=== PATIENT | male | born 1960 | race Caucasian/White ===

== ENCOUNTER 2018-01-27 22:55 | Emergency (ER) | payer MEDICAID, OTHER ==
[~2018-01-27] VITALS: Ht 188 cm; Wt 89.4 kg
[~2018-01-27 22:55] MED LIST: IBUP-1953 PO; LISI2.5T2 PO
--- NOTE | 2018-01-27 23:06 | NUR ---
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 PT WITH HX OF VERTIGO, LAST EPISODE 1 YR AGO, DOES NOT TAKE ANY CURERNT MEDICATION FOR VERTIGO. PT AOX3 RR EVEN AND UNLAORED. NO SOB NOTED. NAD NOTED. NO NVD AT THIS TIME. PT GOWNED AND PLACED ON MONITOR WAITING FOR MD MARTINEZ.
--- NOTE | 2018-01-27 23:22 | NUR ---
FAMILY AT BEDSIDE. IV STARTED ON RIGHT AC, GOOD BLOOD RETURN, LABS DRAWN SENT TO LAB.
--- NOTE | 2018-01-27 23:27 | NUR ---
DR. MCCLELLAN AT BEDSIDE FOR EVAL
[2018-01-27] MEDS ORDERED: MECLIZINE HCL 25 MG TABLET ONE (23:28)
[2018-01-27 23:30] LABS: BASOPHILS # (AUTO) 0.1 /CMM (0.0-0.2); BASOPHILS % (AUTO) 0.5 % (0.0-2.0); EOSINOPHILS % (AUTO) 0.7 % (0.0-6.0); HEMATOCRIT 45 % (39-51); HEMOGLOBIN 15.7 g/dL (13.5-17.5); LYMPHOCYTES # (AUTO) 3.1 /CMM (0.8-4.8); LYMPHOCYTES % (AUTO) 27.4 % (20.0-44.0); MEAN CORPUSCULAR HGB CONC 35 g/dl (31.0-36.0); MEAN CORPUSCULAR VOLUME 84 fL (80-96); MONOCYTES # (AUTO) 0.9 /CMM (0.1-1.30); MONOCYTES % (AUTO) 7.7 % (2.0-12.0); NEUTROPHILS # (AUTO) 7.2 /CMM (1.8-8.9); NEUTROPHILS % (AUTO) 63.7 % (43.0-81.0); PLATELET COUNT (AUTO) 274 /CMM (150-450); RDW COEFFICIENT OF VARIATION 13.3 (11.5-15.0); RED BLOOD CELL COUNT(AUTO) 5.41 MIL/uL (4.5-6.0); WHITE BLOOD COUNT (AUTO) 11.4 K/uL (4.3-11.0)
[2018-01-27] MEDS ORDERED: MECLIZINE HCL 25 MG TABLET PO ONE (23:30)
--- NOTE | 2018-01-27 23:31 | NUR ---
PER DR. RIVAS TO HOLD PO MEDICATION AT THIS TIME.
--- NOTE | 2018-01-27 23:37 | NUR ---
PT TO CT.
--- NOTE | 2018-01-27 23:37 | NUR ---
ACCUCHECK = 139, DR. RIVAS MADE AWARE
[2018-01-27 23:39] LABS: CALCIUM, SERUM 8.9 mg/dL (8.5-10.1); CREATININE 1.2 mg/dL (0.6-1.3); POTASSIUM 3.2 mmol/L (3.5-5.1)
--- NOTE | 2018-01-27 23:53 | NUR ---
PT RETURNED FROM CT.
--- NOTE | 2018-01-27 23:58 | NUR ---
PT REFUSED ABBOTT CATH, RISK AND BENEFITS EXPLAINED X3. PT STRONLY REFUSED, FAMILY AT BEDSIDE
[2018-01-28] MEDS ORDERED: IV NS 0.9% 1,000 ML BAG IV ONE ×2 (00:30→01:00)
--- NOTE | 2018-01-28 01:28 | NUR ---
URINE COLLECTED. CALLED LAB FOR TOWEL SEWER.
[2018-01-28 01:43] LABS: APPEARANCE,URINE CLEAR (CLEAR); BILIRUBIN,URINE NEGATIVE (NEGATIVE); BLOOD, URINE NEGATIVE Ery/uL (NEGATIVE); COLOR,URINE DARK YELLO (YELLOW); KETONES,URINE NEGATIVE (NEGATIVE); LEUKOCYTE ESTERASE ,URINE NEGATIVE (NEGATIVE); NITRITE, URINE NEGATIVE (NEGATIVE); PROTEIN,URINE NEGATIVE (NEGATIVE); UGLUCOSE NEGATIVE (NEGATIVE); UROBILINOGEN,URINE 0.2 EU/dL (0.2)
--- NOTE | 2018-01-28 02:31 | NUR ---
PT ACCEPTED TO [facility] BY DR CAREY. [id number]. # FOR REPORT [phone]
--- NOTE | 2018-01-28 03:06 | NUR ---
PT DENIES DIZZINESS AND NAUSEA AT THIS TIME. PT AOX3 YI SPEAKING. FAMILY AT BEDSIDE TO TRANSLATE. PT STATES HE FEELS BETTER AND WANTS TO GO HOME.
--- NOTE | 2018-01-28 03:12 | NUR ---
PT NOTED WITH STEADY GAIT. DR. RIVAS MADE AWARE
--- NOTE | 2018-01-28 03:20 | NUR ---
Patient discharged to home in stable condition. Written and verbal after care instructions given. Patient verbalizes understanding of instruction. IV removed. Catheter intact and site benign. Pressure and 4x4 applied to site. No bleeding noted. ambulatory with a steady gait. instructed pt not to drive. pt verbalize understanding. pt accompanied by family
[2018-01-28 03:21] VITALS: BP 122/68
== END 2018-01-28 03:21 | disposition home or self-care (01) ==
LOC: ER 22:56
DX: R42 Dizziness and giddiness (principal); F12.10 Cannabis abuse, uncomplicated; I10 Essential (primary) hypertension; F17.200 Nicotine dependence, unspecified, uncomplicated; Z98.890 Other specified postprocedural states
CPT/HCPCS: 36415; 70450-TC; 71045-TC; 80048-TC; 80305; 81000-TC; 82962-TC; 84484-TC; 85025-TC; A4606; J7030; J8597; Z7610